=== PATIENT | female | born 2000 | race African-American/Black ===

== ENCOUNTER 2023-07-08 15:40 | Emergency (ER) | payer OTHER ==
--- NOTE | 2023-07-08 15:51 | ED Physician Documentation ---
PD HPI HEADACHE - Stated complaint Stated Complaint: CHRISTIAN,BODY SHAKES - History obtained from History obtained from: Patient, Family - Additional information Additional information: She has a history of migraines, anxiety, and "stress-induced seizures." She used to be on Keppra for that. She says seizure disorder was ruled out and now is no longer on Keppra. She gets migraines about thrice weekly and about 2 hours ago developed her usual gradual onset global headache associated with nausea and severe light sensitivity. There is no neck stiffness or fevers associated with it. My initial contact with the patient was when a "CODE BLUE" was called in the lobby. She was not pulseless and was awake and hyperventilating on my arrival and looked to of had a panic attack. She complains of all over body numbness just prior to that happening. PD PAST MEDICAL HISTORY - Present Medications Home Medications: Ambulatory Orders Medication Instructions Recorded Confirmed hydrOXYzine HCL [Hydroxyzine HCl] 50 mg PO BID 07/08/23 07/08/23 - Allergies Allergies/Adverse Reactions: Allergies Allergy/AdvReac Type Severity Reaction Status Date / Time No Known Drug Allergies Allergy Verified 07/08/23 15:48 PD ED PE NORMAL - Vitals Vital signs reviewed: Yes - General General: Alert and oriented X 3, Other (Panicky, , With carpal spasm with the BP cuff going up.) - HEENT HEENT: PERRL, EOMI - Neck Neck: Supple, no meningeal sign, No bony TTP - Cardiac Cardiac: RRR, No murmur - Respiratory Respiratory: No respiratory distress, Clear bilaterally - Abdomen Abdomen: Non tender - Neuro Neuro: Alert and oriented X 3, roentgenologist 2-12 intact, No motor deficit, No sensory deficit, Normal speech Eye Opening: Spontaneous Motor: Obeys Commands Verbal: Oriented GCS Score: 15 - Psych Psych: Normal mood, Normal affect Results - Vitals Vitals: Vital Signs - 24 hr 07/08/23 15:48 Temperature 36.8 C Heart Rate 74 Respiratory 16 Rate Blood Pressure 127/97 H O2 Saturation 100 Oxygen O2 Source Room air - EKG (time done) 1553 EKG releavant findings:: EKG personally interpreted by author of this note. Relevant findings are: Rate: Rate (enter#) (73) Rhythm: NSR [place]: Normal Intervals: Normal RI QRS: Normal Ischemia: Normal ST segments Computer interpretation: Agree with computer - Labs Labs: Laboratory Tests 07/08/23 15:47 Sodium 138 Potassium 3.4 L Chloride 105 Carbon Dioxide 19 L Anion Gap 14.0 H BUN 12 Creatinine 1.1 Estimated GFR (MDRD) 61 L Glucose 110 H Calcium 10.4 H PD Medical Decision Making - ED course ED course: She presents today with a headache, the headache is gradual in onset and similar to prior headaches. As such I doubt subarachnoid hemorrhage. There are no infectious symptoms such as fever or stiff neck to make me suspect meningitis. No carbon monoxide exposure by history. 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 She is no longer in the [place]. She was medicated here with droperidol, Toradol, and dexamethasone IV after which she had complete resolution of her headache. She was ambulatory here without issue. On reexamination prior to discharge she was pain-free and had no meningismus. Departure - Departure Disposition: 01 Home, Self Care Clinical Impression: Migraine Qualifiers: Migraine type: unspecified Status migrainosus presence: with status migrainosus Intractability: not intractable Qualified Code(s): G43.901 - Migraine, unspecified, not intractable, with status migrainosus Condition: Good Record reviewed to determine appropriate education?: Yes Instructions: ED Headache Migraine Comments: You were seen today for headache, it seems like it was complicated by a panic attack and either a passing out episode or seizure-like activity. You were administered medications, specifically droperidol, dexamethasone, and ketorolac with seeming resolution of the headache. Call your doctor to arrange a follow- up appointment, make the next available appointment. In the interim, return anytime if worse or if new symptoms develop. Forms: PCP List
[2023-07-08 15:53] VITALS: O2SAT 100
[2023-07-08] MEDS: DEXAMETHASONE 10 MG/ML VIAL IVP STA (16:02)
[2023-07-08] MEDS: DROPERIDOL 5 MG/2 ML VIAL IVP STA (16:02)
[2023-07-08] MEDS: KETOROLAC 15 MG/ML VIAL IVP STA (16:03)
[2023-07-08] MEDS: SODIUM CHLORIDE 0.9% 1,000 ML IV STA (16:03)
[2023-07-08 16:09] LABS: CALCIUM 10.4 mg/dL (8.5-10.3); CREATININE 1.1 mg/dL (0.6-1.3); POTASSIUM 3.4 mmol/L (3.5-4.5)
[2023-07-08 17:21] VITALS: BP 116/74
== END 2023-07-08 17:22 | disposition home or self-care (01) ==
LOC: ED 15:40
DX: G43.901 Migraine, unspecified, not intractable, with status migrainosus (principal); F41.0 Panic disorder [episodic paroxysmal anxiety]
CPT/HCPCS: 36415; 80048; 93005; 96361; 96374; 96375; 99284